=== PATIENT | female | born 1990 | race Caucasian/White ===

== ENCOUNTER → 2021-01-16 11:33 | Outpatient (CLI) | payer OTHER, MEDICAID, SELFPAY ==
[2021-01-16 13:09] LABS: Appearance Urine UA Clear; Bilirubin Urine UA Negative (NEGATIVE); Color Urine UA Yellow; Glucose Urine UA NEGATIVE (Negative); Ketones Urine UA TRACE (NEGATIVE); Nitrite Urine UA NEGATIVE (Negative); Occult Blood Urine UA Negative (Negative); Protein Urine UA Negative (Negative); Urobilinogen Urine UA Normal E.U./dL (0.2); pH Urine UA 5.5 (4.5-8.0)
[2021-01-16 13:10] LABS: Leukocyte Esterase Urine UA NEGATIVE (NEGATIVE)
== END ==
PROVIDERS: Family Provider Family Medicine; PCP Family Medicine; Visit Provider Obstetrics & Gynecology
DX: Z34.81 Encounter for supervision of other normal pregnancy, first trimester (principal)
CPT/HCPCS: 81003; 87086

== ENCOUNTER 2021-04-09 15:58 | Outpatient (CLI) | payer OTHER, MEDICAID, SELFPAY ==
[2021-04-09 17:07] LABS: Appearance Urine UA CLEAR; Bilirubin Urine UA NEGATIVE (NEGATIVE); Color Urine UA YELLOW; Glucose Urine UA NEGATIVE (Negative); Ketones Urine UA 1+ (NEGATIVE); Leukocyte Esterase Urine UA NEGATIVE (NEGATIVE); Nitrite Urine UA NEGATIVE (Negative); Occult Blood Urine UA NEGATIVE (Negative); Protein Urine UA NEGATIVE (Negative); Urobilinogen Urine UA 0.2 E.U./dL (0.2)
--- NOTE | 2021-04-09 17:13 | DI.US.S_ITS ---
PROCEDURE: US OB LIMITED INDICATIONS: ABD PAIN OUTSIDE/PRIOR DATING DATA: Last menstrual period (LMP): October 13, 2020 . LMP-based estimated date of delivery (CANDI): July 20, 2021 . TECHNIQUE: Real-time scanning was performed of the fetus, with image documentation. Endovaginal scanning: Endovaginal scanning performed to assess cervical length. COMPARISON: None. FINDINGS: A single living intrauterine gestation is present. Presentation: Vertex. Placenta: Placental position is fundal , without previa. No evidence for placental abruption. Amniotic fluid index: 15.7 cm, normal range is 5-24 cm. Largest vertical pocket measured 5.1 cm heart rate: 143 beats per minute. Maternal cervical canal: 4.1 cm long. Normal lower limit is 2.5 cm. Anatomy not assessed. IMPRESSION: Single living intrauterine gestation. Normal maternal cervical length of 4.1 cm. No evidence for placenta previa or abruption. Recommend continued clinical surveillance. Dictated by: Salomon Linder M.D. on 04/09/2021 at 18:19 Approved by: Salomon Linder M.D. on 04/09/2021 at 18:21
[2021-04-09 17:15] LABS: Bacteria Urine Occasional (0-1); Culture Indicated Urine Cult Not Indicated; RBC Urine 0-1/HPF (0-5/HPF); Squamous Epithelial Cell Urine 1-5 /HPF (0-5/HPF); Transitional Epi Cells Urine 1-5/HPF (0-5/HPF); WBC Urine 0-1/HPF (0-5/HPF)
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
[2021-04-09] MEDS: NIFEdipine 10 MG CAPSULE PO ×4 (19:27→20:34)
[2021-04-09] MEDS: NIFEdipine 30 MG TAB ER PO (21:04)
== END 2021-04-09 21:05 | disposition home or self-care (01) ==
LOC: LABOR 16:02 → OB 04-15 07:14
PROVIDERS: Family Provider Family Medicine; PCP Family Medicine; Referring Provider Obstetrics & Gynecology; Visit Provider Obstetrics & Gynecology
DX: Z03.71 Encounter for suspected problem with amniotic cavity and membrane ruled out (principal); O47.02 False labor before 37 completed weeks of gestation, second trimester; O26.22 Pregnancy care for patient with recurrent pregnancy loss, second trimester; Z3A.25 25 weeks gestation of pregnancy
CPT/HCPCS: 59025; 76815; 76817; 81001; 84112; 96360; G0378; G0379

== ENCOUNTER → 2021-04-15 08:53 | Outpatient (CLI) | payer OTHER, MEDICAID, SELFPAY ==
[2021-04-15 11:34] LABS: Hematocrit 35.4 % (36-46); Hemoglobin 11.8 g/dL (12.0-16.0)
[2021-04-15 11:46] LABS: GTT (PREG) 1 Hour PP 50gm Dose 119 mg/dL (76-139)
== END ==
PROVIDERS: Family Provider Family Medicine; PCP Family Medicine; Referring Provider Obstetrics & Gynecology; Visit Provider Obstetrics & Gynecology
DX: Z34.82 Encounter for supervision of other normal pregnancy, second trimester (principal); Z3A.25 25 weeks gestation of pregnancy
CPT/HCPCS: 36415; 82950; 85014; 85018

== ENCOUNTER → 2021-05-19 15:47 | Outpatient (CLI) | payer OTHER, MEDICAID, SELFPAY ==
--- NOTE | 2021-05-19 15:48 | DI.US.S_ITS ---
PROCEDURE: US OB LIMITED INDICATIONS: PREMATURE CONTRACTIONS. OUTSIDE/PRIOR DATING DATA: Last menstrual period (LMP): 10/13/20 . LMP-based estimated date of delivery (CANDI): 07/20/21 . First dating scan (date and location): 12/26/20 Estimated date of delivery (CANDI) from first dating scan: 07/21/21 Below measurements were made using the clinically derived due date of 07/20/21. . TECHNIQUE: Real-time scanning was performed of the fetus, with image documentation and biometric measurements. Endovaginal scanning: For improved cervical detail COMPARISON: [facility], OB LIMITED, 04/09/2021, 17:40. FINDINGS: General: A single living intrauterine gestation is present. Presentation: Cephalic. Placenta: Not evaluated Amniotic fluid index: 9.3 cm, normal range is 5-24 cm. Largest pocket is 3.7 cm heart rate: 149 beats per minute. Maternal cervical canal: Closed and 3.3 cm long. Normal lower limit is 2.5 cm. biometrics: Biparietal diameter: 7.7 cm, 31 weeks, 0 days Head circumference: 27.2 cm, 29 weeks, five days Abdominal circumference: 25.4 cm, 29 weeks, four days Femur length: 6.0 cm, 31 weeks, 0 days Estimated gestational age from initial scan: 31 weeks, one day Composite gestational age from present scan: 30 weeks, two days Estimated weight and percentile: 1520 g, 13th percentile Measurement variability for biometric dating: +/- 7 days from 14 weeks to 15 weeks 6 days gestation, +/- 10 days from 16 weeks to 21 weeks 6 days gestation, +/- 2 weeks from 22 weeks to 27 weeks 6 days gestation, +/- 3 weeks for 28 weeks gestation or later. weight reference: 4500 g or EFW >90/95% is considered macrosomia or large for gestational age. EFW <10% is small for gestational age. EFW 5% or less is considered intra-uterine growth restriction. IMPRESSION: 1. Single live intrauterine with appropriate growth since the prior study. 2. Estimated weight at the 13th percentile. 3. Closed cervix, 3.3 cm in length. Dictated by: Melania Ruiz M.D. on 05/20/2021 at 14:09 Approved by: Melania Ruiz M.D. on 05/20/2021 at 14:16
== END ==
PROVIDERS: Family Provider Family Medicine; PCP Family Medicine; Referring Provider Obstetrics & Gynecology; Visit Provider Obstetrics & Gynecology
DX: O47.03 False labor before 37 completed weeks of gestation, third trimester (principal); Z3A.30 30 weeks gestation of pregnancy
CPT/HCPCS: 76815; 76817

== ENCOUNTER → 2021-06-23 11:03 | Outpatient (CLI) | payer OTHER, MEDICAID, SELFPAY ==
[2021-06-24 07:48] LABS: Strep Grp B PCR POS for Grp B Strep
== END ==
PROVIDERS: Family Provider Family Medicine; PCP Family Medicine; Visit Provider Obstetrics & Gynecology
DX: Z34.83 Encounter for supervision of other normal pregnancy, third trimester (principal); Z3A.36 36 weeks gestation of pregnancy
CPT/HCPCS: 87653

== ENCOUNTER → 2021-07-03 12:44 | Outpatient (CLI) | payer OTHER, MEDICAID, SELFPAY ==
--- NOTE | 2021-07-03 12:45 | DI.US.S_ITS ---
PROCEDURE: US OB FOLLOW UP INDICATIONS: Assess growth; Size>Dates OUTSIDE/PRIOR DATING DATA: Last menstrual period (LMP): 10/13/2020. LMP-based estimated date of delivery (CANDI): 07/20/2021. First dating scan (date and location): 05/19/2021. Estimated date of delivery (CANDI) from first dating scan: 07/26/2021. The calculations are made using the ultrasound CANDI of 07/26/2021. TECHNIQUE: Real-time scanning was performed of the fetus, with image documentation and biometric measurements. Endovaginal scanning: Not performed COMPARISON: [facility], US, US OB BIOPHYSICAL + UMBILICAL DOPPLER, 05/26/2021, 22:01. FINDINGS: General: A single living intrauterine gestation is present. Presentation: Cephalic. Placenta: Placental position is fundal, without previa. Amniotic fluid index: 5.6 cm, normal range is 5-24 cm. Single deepest vertical pocket is 2.4 cm. heart rate: 152 beats per minute. Maternal cervical canal: Not visualized. biometrics: Biparietal diameter: 9.1 cm, 37 weeks 0 days Head circumference: 32.8 cm, 37 weeks 2 days Abdominal circumference: 33.1 cm, 37 weeks 0 days Femur length: 7 cm, 35 weeks 6 days Clinically estimated gestational age: 36 weeks 5 days Composite gestational age from present scan: 36 weeks 6 days Estimated weight and percentile: 3020 g, 56 percentile Other: Right renal pelvis measures 0.2 cm. Left renal pelvis measures 0.4 cm. IMPRESSION: 1. [place] living intrauterine at 36 weeks 6 days based on today's ultrasound. Cephalic position. Estimated weight is at the 56 percentile. 2. Normal placenta. VALENTINO 5.6. Within normal limits. We strive to produce accurate, complete, and clear reports of imaging services. To assist us in improving patient care, this report was composed using standard report templates and voice recognition software. Therefore, it may contain abnormal punctuation, insertions and/or omissions. Occasional wrong-word or sound-alike substitutions may occur. Though we review the report and make efforts to correct it, we do recommend that the report be read carefully in proper context to recognize any text inaccuracies. Dictated by: Kimo Becerra M.D. on 07/03/2021 at 14:58 Approved by: Kimo Becerra M.D. on 07/03/2021 at 15:02
== END ==
PROVIDERS: Family Provider Family Medicine; PCP Family Medicine; Referring Provider Obstetrics & Gynecology; Visit Provider Obstetrics & Gynecology
DX: O26.843 Uterine size-date discrepancy, third trimester (principal); Z3A.36 36 weeks gestation of pregnancy
CPT/HCPCS: 76816

== ENCOUNTER 2021-07-21 09:30 | Outpatient (CLI) | payer OTHER, MEDICAID, SELFPAY | END 2021-07-21 11:02 | disposition home or self-care (01) | LOC: LABOR 10:26 → OB 07-23 11:08 | PROVIDERS: Family Provider Family Medicine; PCP Family Medicine; Referring Provider Obstetrics & Gynecology; Visit Provider Obstetrics & Gynecology | DX: O48.0 Post-term pregnancy (principal); Z3A.40 40 weeks gestation of pregnancy | CPT/HCPCS: 59025; G0378; G0379 ==

== ENCOUNTER 2021-07-24 12:45 | Outpatient (CLI) | payer OTHER, MEDICAID, SELFPAY | END 2021-07-24 13:53 | disposition home or self-care (01) | LOC: OB 07-28 07:29 | PROVIDERS: Family Provider Family Medicine; PCP Family Medicine; Referring Provider Obstetrics & Gynecology; Visit Provider Obstetrics & Gynecology | DX: O48.0 Post-term pregnancy (principal); Z3A.40 40 weeks gestation of pregnancy | CPT/HCPCS: 59025; G0378; G0379 ==

== ENCOUNTER 2021-07-27 17:32 | Outpatient (CLI) | payer OTHER, MEDICAID, SELFPAY | END 2021-07-27 18:46 | disposition home or self-care (01) | LOC: OB 07-28 07:32 | PROVIDERS: Family Provider Family Medicine; PCP Family Medicine; Referring Provider Obstetrics & Gynecology; Visit Provider Obstetrics & Gynecology | DX: O48.0 Post-term pregnancy (principal); Z3A.40 40 weeks gestation of pregnancy | CPT/HCPCS: 59025; G0378; G0379 ==

== ENCOUNTER 2021-07-28 07:08 | Inpatient (IN) | payer OTHER, MEDICAID, SELFPAY ==
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
[2021-07-28 08:13] LABS: Add Manual Diff / Slide Review NO; Basophils Absolute Auto 0 /uL (0-100); Basophils Percent Auto 0.2 % (0-2); Eosinophils Absolute Auto 100 /uL (0-450); Eosinophils Percent Auto 1.2 % (2-4); Hematocrit 34.5 % (36-46); Lymphocytes Absolute Auto 1800 /uL (1100-4500); Lymphocytes Percent Auto 16.9 % (25-40); Mean Corpuscular HGB Conc 34.8 % (30-36); Mean Corpuscular Hemoglobin 30.3 PG (26-34); Mean Corpuscular Volume 87.3 fL (80-100); Monocytes Absolute Auto 700 /uL (0-900); Monocytes Percent Auto 6.5 % (3-14); Neutrophils Absolute Auto 7900 /uL (1500-7000); Neutrophils Percent Auto 75.2 % (50-75); Platelet Count 300 X10^3/uL (150-400); Red Blood Cell Count 3.95 X10^6/uL (4.0-5.2); Red Cell Distribution Width 14.5 % (11.6-14.8); White Blood Cell Count 10.4 X10^3/uL (4.5-11.0)
[2021-07-28 08:31] LABS: COVID19 -Nasal RAPID Negative (Negative)
[2021-07-28] MEDS: PENICILLIN G POTASSIUM 5,000,000 UNIT in DEXTROSE 5% IN WATER 250 ML IV (08:43)
[2021-07-28] MEDS: LACTATED RINGERS 1,000 ML 100 ML IV ×2 (08:43→18:51)
[2021-07-28] MEDS: OXYTOCIN PREMIX 30 UNIT/500 ML PLAST..BAG IV (09:01)
[2021-07-28 11:34] VITALS: BP 126/63
[2021-07-28] MEDS: PENICILLIN G POTASSIUM 3,000,000 UNIT/50 ML FROZ.PIGGY 100 UNIT IV ×2 (12:15→16:10)
--- NOTE | 2021-07-28 15:07 | PM.OBPNLAB ---
Date/Time Date Patient Seen: 07/28/21 Time Patient Seen: 12:30 Pain Control Pain control: tolerating well Pelvic Exam Dilation (cm): 3 Effacement (%): 90 station: -1 Amniotic membrane status: Intact Contractions Contractions on admission: regular Monitor mode: External Contraction frequency (min): 3 Contraction duration (min): 1 Contraction pattern: Regular Contraction phase: Resting Contraction intensity: Moderate Status status: Category l Heart Rate Baseline: 135 Monitor Accelerations: Present Monitor Decelerations: Absent Monitor Variability: Moderate Assessment and Plan Assessment: induction ongoing Plan: continuous present management Comments: Unable to AROM due to posterior position of cervix
[2021-07-29] MEDS: miSOPROStoL 25 MCG TABLET 50 MCG PO (02:32)
--- NOTE | 2021-07-29 07:06 | PM.OBPNLAB ---
Date/Time Date Patient Seen: 07/28/21 Time Patient Seen: 19:20 Pain Control Pain control: tolerating well Pelvic Exam Effacement (%): 75 station: -1 Amniotic membrane status: Intact Contractions Monitor mode: External Pitocin rate (mU/min): 20 Contraction frequency (min): 3 Contraction duration (min): 1 Contraction pattern: Regular Contraction phase: Resting Contraction intensity: Moderate Status status: Category l Heart Rate Baseline: 145 Monitor Accelerations: Present Monitor Decelerations: Absent Monitor Variability: Moderate Comments: Category 1 tracing Assessment and Plan Assessment: induction ongoing Plan: other (Pitocin augmentation paused due to staffing limitations; will resume as soon as staffing permits. Patient aware.)
--- NOTE | 2021-07-29 07:34 | P.PNOB_ITS ---
Date/Time Date Patient Seen: 07/29/21 Time Patient Seen: 07:20 Pain Control Comments: No pain at present, sleeping soundly Pelvic Exam Amniotic membrane status: Intact Contractions Contraction pattern: Regular Contraction phase: Resting Contraction intensity: Moderate Assessment and Plan Assessment: other (Induction placed on hold due to staffing shortages) Plan: other Comments: Have received notification that stain generating capability in the [facility] OR is down with only 2 available packs currently sterilized and therefore induction at this point cannot be continued due to safety reasons. Options being evaluated at present by leadership and once decisions are made at that level, will discuss options with the patient and move forward with whatever plan is deemed safest and most appropriate for the patient.
--- NOTE | 2021-07-29 08:38 | PM.OBPNLAB ---
Date/Time Date Patient Seen: 07/29/21 Time Patient Seen: 08:25 Pelvic Exam Dilation (cm): 3 Effacement (%): 90 station: -1 Amniotic membrane status: Intact Comments: AROM performed but little or no fluid noted Contractions Monitor mode: External Contraction pattern: Regular Contraction phase: Resting Contraction intensity: Moderate Status status: Category l Heart Rate Baseline: 135 Monitor Accelerations: Present Monitor Decelerations: Absent Monitor Variability: Moderate Assessment and Plan Assessment: other Plan: begin patient augmentation Comments: Issues preventing re-initiation of induction have been resolved and will therefore restart Pitocin at 3 units and increase to affect adequate labor.
[2021-07-29] MEDS: OXYTOCIN PREMIX 30 UNIT/500 ML PLAST..BAG IV (08:49)
[2021-07-29] MEDS: PENICILLIN G POTASSIUM 3,000,000 UNIT/50 ML FROZ.PIGGY 100 UNIT IV ×2 (08:49→12:42)
[2021-07-29] MEDS: LACTATED RINGERS 1,000 ML 100 ML IV ×2 (08:53→17:28)
--- NOTE | 2021-07-29 11:13 | PM.AN.REGBLK ---
Regional Block Pre-procedure Procedure: Continuous Lumbar Epidural for L&D Attending OB provider: Lalit Emanuel PMH/ROS narrative: No previous epidurals. Patient denies problems with or contributory past medical history. Hx: No personal or family history of anesthesia problems. Exam narrative: MP2, RRR, CTAB ASA Class: III Labs: Hct 34.5 % (36-46) L 07/28/21 08:00 Plt Count 300 X10^3/uL (150-400) 07/28/21 08:00 Medications: Current Medications Generic Name Dose Route Start Last Admin Trade Name Freq PRN Reason Stop Dose Admin Carboprost Tromethamine 250 mcg 07/28/21 07:34 Carboprost 250 Mcg/Ml Ampul IM Q90M PRN Bleeding Fentanyl 50 mcg 07/28/21 07:36 Fentanyl 100 Mcg/2 Ml Inj IV Q1H PRN Pain, Moderate (4-6) Lactated Ringer's 1,000 mls @ 100 mls/hr 07/28/21 07:45 07/29/21 08:53 Lactated Ringers IV 100 mls/hr CONT MAHIN Administration Oxytocin/Lactated Ringer's 30 unit in 500 mls @ 200 mls/hr 07/28/21 07:34 Oxytocin Premix IV CONT PRN Bleeding Protocol Tranexamic Acid 1,000 mg/ 100 mls @ 200 mls/hr 07/28/21 07:34 Sodium Chloride IV NOW PRN Bleeding Oxytocin/Lactated Ringer's 30 unit in 500 mls @ 3 mls/hr 07/28/21 08:00 07/29/21 08:49 Oxytocin Premix IV 3 milliunit/min TITRATE MAHIN 3 mls/hr Administration Protocol 3 MILLIUNIT/MIN Penicillin G Potassium 3,000,000 unit in 50 mls @ 100 mls/hr 07/28/21 12:00 07/29/21 08:49 Penicillin G Potassium IV 100 mls/hr Q4H MAHIN Administration Lactated Ringer's 1,000 mls @ 100 mls/hr 07/29/21 11:15 Lactated Ringers IV CONT MAHIN FENT 2MCG/ML BUPIV 0.125% EPI 200 mcg in 100 mls @ 12 mls/hr 07/29/21 11:15 Fentanyl/Bupiv/Ns 2mcg/Ml - 0.125% EPIDURAL CONT MAHIN Methylergonovine Maleate 0.2 mg 07/28/21 07:34 Methylergonovine 0.2 Mg Tablet PO Q6HR PRN Heavy Bleeding Methylergonovine Maleate 0.2 mg 07/28/21 07:34 Methylergonovine 0.2 Mg/Ml Vial IM NOW PRN Bleeding Misoprostol 800 mcg 07/28/21 07:34 Misoprostol 200 Mcg Tablet ID NOW PRN Bleeding Misoprostol 1,000 mcg 07/28/21 07:34 Misoprostol 200 Mcg Tablet ID NOW PRN Bleeding Misoprostol 400 mcg 07/28/21 07:34 Misoprostol 200 Mcg Tablet SL NOW PRN Bleeding Naloxone HCl 0.2 mg 07/28/21 07:36 Naloxone 0.4 Mg/Ml Vial IV Q2MIN PRN Opiate Reversal Ondansetron HCl 4 mg 07/28/21 07:36 Ondansetron 4 Mg/2 Ml Inj IV Q4HR PRN Nausea And Vomiting Oxytocin 10 unit 07/28/21 07:34 Oxytocin 10 Unit/Ml Vial IM NOW PRN Bleeding Zolpidem Tartrate 5 mg 07/28/21 22:45 Zolpidem 5 Mg Tablet PO BEDTIME PRN Sleep Allergies: Allergies Allergy/AdvReac Type Severity Reaction Status Date / Time peanut [PEANUT] Allergy Intermediate Rash, GI Verified 03/13/21 15:55 intolerance nickel Allergy Rash Verified 03/13/21 15:55 ciprofloxacin AdvReac Intermediate GI Verified 03/13/21 15:55 intolerance pramipexole [PRAMIPEXOLE] AdvReac Intermediate GI Verified 04/09/21 20:16 intolerance topiramate AdvReac Intermediate GI Verified 04/09/21 20:16 intolerance ibuprofen AdvReac GI Verified 03/13/21 15:55 intolerance Procedure Insertion date: 07/29/21 Insertion time: 10:55 Prep/Local: betadine x3 (chloroprep) and 1% lidocaine Interspace: L3-4 Patient position: sitting Needle: 18 gauge Chadd (with 27G pencil point needle-through needle for IT dose) Loss of resistance with: saline (with air bubble) RHONDA at (cm): 7 Catheter placed at SKIN (cm): 12 Catheter in SPACE (cm): 5 Insertion: Yes CSF, No Blood, No Paresthesia with insertion, No Paresthesia with injection and No Test dose reaction Initial Medications TEST DOSE time: 10:55 TEST DOSE: 1.5% lidocaine with epinephrine 1:200k (mL): 5 (3mL initial test dose, 2mL as part of first bolus) BOLUS DOSE time: 10:56 BOLUS DOSE (mL): 2 BOLUS DOSE med: other (10mcg fentanyl intrathecally, 90mcg fentanyl via epidural catheter) Infusion INFUSION: 0.0625% bupivacaine and with fentanyl 2 mcg/mL Initial rate (mL/hr): 12 (with bolus of 5mL Q15min lockout) Post-procedure Anesthesia time START: 10:40 Anesthesia time END: 16:45 Post-procedure Anesthesia Assessment: No Anesthesia complications (failure to progress --> using epidural.)
--- NOTE | 2021-07-29 13:20 | PM.OBPNLAB ---
Date/Time Date Patient Seen: 07/29/21 Time Patient Seen: 13:20 Pain Control Pain control: epidural Comments: Excellent pain relief with her SHERIE Pelvic Exam Dilation (cm): 5 Effacement (%): 90 station: -1 Amniotic membrane status: Ruptured Contractions Monitor mode: Internal Contraction frequency (min): 3 Contraction duration (min): 1 Contraction pattern: Regular Contraction phase: Resting Contraction intensity: Moderate Status status: Category l Heart Rate Baseline: 120 Monitor Accelerations: Present Monitor Decelerations: Absent Monitor Variability: Moderate Assessment and Plan Assessment: induction ongoing Comments: IUPC and FSE placed. She's had no progress in dilation or advancement of the station over the last 2.5 hours. Infant is NANCY and not asynclitic. Slight caput formation. Will assess uterine activity and closely observe progress.
--- NOTE | 2021-07-29 16:16 | PM.OBPNLAB ---
Date/Time Date Patient Seen: 07/29/21 Time Patient Seen: 16:06 Pain Control Pain control: tolerating well Pelvic Exam Dilation (cm): 5 Effacement (%): 90 station: -1 Amniotic membrane status: Ruptured Comments: No change since 1030. Vertex is NANCY, non asynclitic, and the bony vertex is impacted against the bony pelvis cephalad to the ischial spines. Early caput formation is noted as well. Contractions Contractions on admission: none Monitor mode: Internal Pitocin rate (mU/min): 8 Contraction frequency (min): 3 Contraction duration (min): 1 Contraction pattern: Regular Contraction phase: Resting Contraction intensity: Moderate Status status: Category l Heart Rate Baseline: 115 Monitor Accelerations: Present Monitor Decelerations: Absent Monitor Variability: Moderate Assessment and Plan Assessment: induction ongoing Plan: Comments: Patient's dilation has not changed in over 5-1/2 hours and her station has not changed in over 24 hours despite adequate contractions as documented by IUPC. Options discussed included continued expectant management with close observation for descent and dilatation or to proceed with primary section for cephalopelvic disproportion. After consideration of all options, patient agrees to proceed with primary section by low transverse cervical incision. Patient counseled regarding alternatives, risks, benefits, and potential complications associated with primary section. A written consent was executed, signed, and witnessed this date.
--- NOTE | 2021-07-29 17:00 | PM.PREOP ---
Pre-operative Note COVID-19 COVID-19 status: Negative Result date/Date tested (Pos, Neg/Pending): 07/28/21 Interval Note History & Physical reviewed/Exam performed by Physician: Yes Changes to H&P: No
[2021-07-29] MEDS: CEFAZOLIN 2 GM/20 ML SYRINGE IV (17:08)
--- NOTE | 2021-07-29 17:22 | SUR.OPER ---
Addendum entered by Sarita King R.N. 07/29/21 17:55: Patient left her glasses on, nose ring in place and silicone white band on left hand. Original Note: Supine on Padded OR bed, head on pillow, safety belt at thigh, arms secured on padded arm boards at <90 degrees abduction. Bump under right buttock. Legs uncrossed with pillow under knees, gel pad to heels, tape over blanket to lower legs. Gel pad placed between patients posterior right thigh and catheter tubing.
--- NOTE | 2021-07-29 17:40 | SUR.OPER ---
Viable baby boy delivered at 1734. Placenta delivered. Cord blood tubes X2 and placenta given to L&D RN.
[2021-07-29 18:20] VITALS: BP 112/48; PULSE 78; RESP 10; TEMP 36.6; O2SAT 100
[2021-07-29 18:25] VITALS: BP 100/63; PULSE 85; RESP 10; O2SAT 100
[2021-07-29] MEDS: OXYCODONE IR 5 MG TABLET PO (18:25)
[2021-07-29 18:30] VITALS: BP 108/71; PULSE 84; RESP 12; O2SAT 100
--- NOTE | 2021-07-29 18:33 | PM.OBCS.1 ---
Operative Date/Time/Diagnoses Date of procedure: 07/29/21 Time of procedure: 17:00 Pre-op diagnosis: Intrauterine gestation, 40 1+1 weeks gestational age Secondary arrest of descent and dilatation due to cephalopelvic disproportion Post-op diagnosis: same Procedure & Clinicians Procedure: Primary section (low transverse cervical) Same procedure as scheduled: Yes Indications: Melissa is a 31-year-old 7 para 0 at 41+ 1 weeks gestational age who is experienced secondary arrest of descent and dilatation during induction for postdates. Her cervical dilation did not advance beyond 5 cm and the vertex did not descend below-1 station for over 6 hours prior to decision for operative delivery. Surgeon: Lalit Emanuel Hvac Field Service Technician: Lata Cisse Reason for Hvac Field Service Technician: Required for retraction and the safe, timely, and effective performance of delivery. Anesthesia Type: Epidural Operative Notes Findings: Normal gravid anatomy. Viable male Apgars of 9/9 with weight of 3454 gms (7# 9.8 oz.) delivered from the vertex presentation. Closure Type: primary Specimen(s): cord blood Intraoperative meds administered: Pitocin Applied: Catheter Estimated Blood Loss (mL): 600 Blood products transfused: none Procedure in detail: With the patient under satisfactory continuous lumbar epidural anesthesia in the dorsal supine position, the abdomen was prepped and draped for delivery. A pre-surgical safety time-out was then taken in accordance with [facility] Main OR protocols. A 15 cm transverse Pfannenstiel incision was made in the skin and the incision was carried down to the deep fascia. The deep fascia was incised transversely, the rectus abdominal my bluntly, and the peritoneum was entered sharply without difficulty. A bladder blade was placed and bladder flap created with a transverse incision of the peritoneum at the vesicouterine reflection. The bladder is advanced and hysterotomy performed sharply with production of clear fluid. The was easily delivered from the vertex presentation and after delayed cord clamping of greater than 60 seconds, was passed to the staff in attendance for delivery. The uterus was massaged and the placenta easily delivered with gentle traction and massage of the fundus. No residual membranes were noted and the uterus was exteriorized. Ring forceps were placed at the angles and on the lower aspect of the hysterotomy. Primary closure of the hysterotomy was performed with #1 Chromic with a running interlocking stitch followed by a 2nd layer of #1 Chromic in running imbricating stitch. Hemostasis was excellent and the pelvis was irrigated. The uterus was then replaced into the abdominal cavity and inspected for bleeding. There was no bleeding and the hysterotomy line was completely hemostatic. The bladder flap was not closed but the anterior peritoneum was closed with 2 O Vicryl in a running stitch. The fascia was then closed with 1. Vicryl in a running stitch initiated each angle and tying separately near the midline. The subcutaneous tissues were then closed with 2-0 Vicryl in a running stitch and the skin edges brought together with 4-0 Monocryl using a running subcuticular closure. Mastisol and Steri-Strips are applied followed by dressing with an Aquacel dressing. The patient was then transferred to the PACU for a period of recovery after having tolerated procedure well. Estimated blood loss 600 cc. Complications experienced, none. Complications: none [place] Baby 1: Infant Gender: Male Presentation: vertex Position: Left Occiput Anterior Placental Delivery Description: Manual Removal Cord Vessel Description: 3 Vessels score (1 min): 9 score (5 min): 9 weight: 7 lb 9.836 oz
[2021-07-29 18:35] VITALS: BP 112/57; PULSE 77; RESP 13; O2SAT 100
--- NOTE | 2021-07-29 19:09 | SUR.PHASEI ---
Report to [facility] in labor and delivery. Pt transported via bed and self and Shannon CARRERA escorting.
[2021-07-29] MEDS: OXYCODONE/ACETAMINOPHEN 5/325 TABLET 1 TAB PO (21:42)
[2021-07-29] MEDS: MORPHINE 4 MG/ML INJ IV (22:52)
[2021-07-30] MEDS: hydrOXYzine pamoate 25 MG CAPSULE PO ×2 (00:03→22:01)
[2021-07-30] MEDS: KETOROLAC 30 MG/ML VIAL IV ×4 (00:03→18:39)
[2021-07-30] MEDS: OXYCODONE/ACETAMINOPHEN 5/325 TABLET 2 TAB PO ×4 (02:25→18:39)
[2021-07-30 07:42] LABS: Hematocrit 33.6 % (36-46); Hemoglobin 11.2 g/dL (12.0-16.0)
[2021-07-30] MEDS: DOCUSATE 100 MG CAPSULE 200 MG PO (08:49)
--- NOTE | 2021-07-30 12:33 | PM.OBPN.1 ---
Subjective - OB Subjective Patient comments: pain well controlled and incisional pain [place] baby status: doing well feeding status: breast and bottle feeding Date Patient Seen: 07/30/21 Time Patient Seen: 12:20 Exam Vital Signs (past 8 hours): Oxygen Delivery Method Room Air Const General: cooperative and comfortable Orientation: alert and oriented x3 HENMT Head: normal to inspection Ears: hearing grossly normal bilaterally Nose: external nose normal Face and sinus: face symmetric Eyes General: appearance normal, both eyes and all related structures Neck Neck: normal visual inspection Resp Effort & Inspection: normal respiratory effort and able to speak in complete sentences Auscultation: clear to auscultation bilaterally Cardio Rate: regular rate Rhythm: regular rhythm Heart Sounds: S1 normal, S2 normal and no murmurs GI Inspection: normal to inspection and incision (Dressing clean and dry) Palpation: soft, no hepatosplenomegaly and mass (Fundus firm, mildly tender, U -2) General: other (Deferred) Extrem General: no calf tenderness Psych Appearance: grossly normal Mental Status: mental status grossly normal Speech and Movement: speech and movement normal Mood: congruent mood Affect: normal affect Attitude: cooperative Thought Process: normal Thought Content: normal Judgment: judgment good Objective Labs Result Diagrams: 07/30/21 06:45 Labs: Laboratory Results - last 24 hr 07/30/21 06:45 Hgb 11.2 L Hct 33.6 L Assessment & Plan Plan day: 1 plan OB: routine postop care Comments: Anticipate discharge 07/31/2021. Time Spent With Patient Time: Total time spent is greater than 50% in coordination of care (as documented) at patient's floor/unit and/or counseling patient: Time with patient: less than 15 minutes
[2021-07-30] MEDS: ACETAMINOPHEN 325 MG TABLET 650 MG PO (22:00)
[2021-07-30] MEDS: ONDANSETRON 8 MG TABLET PO (23:00)
[2021-07-31] MEDS: ONDANSETRON 4 MG ODT 8 MG PO (00:55)
[2021-07-31] MEDS: OXYCODONE IR 5 MG TABLET 10 MG PO (02:07)
[2021-07-31] MEDS: OXYCODONE/ACETAMINOPHEN 5/325 TABLET 1 TAB PO (06:08)
--- NOTE | 2021-07-31 08:05 | PM.OBDS.1 ---
Discharge Providers Provider Date of admission: 07/28/21 07:08 Discharge Date: 07/31/21 Primary care physician: Lorenzo Mota MD Consults: 07/28/21 07:37 Consult to Anesthesiology Urgent Comment: Consulting Provider: Lalit Emanuel Reason for consultation: Placement of SHERIE in labor Has provider been notified: No 07/29/21 18:41 Consult to Recoating Machine Operator Routine Comment: Discharge provider: Lalit Emanuel MD Summary Hospital Course Date Patient Seen: 07/31/21 Time Patient Seen: 10:30 Diagnoses: Intrauterine gestation, 40 1+1 weeks, delivered Secondary arrest of descent and dilatation due to cephalopelvic disproportion Status post primary section (low transverse cervical) Hospital Course: On the afternoon of 07/29/2021, the patient underwent a primary section for secondary arrest of descent and dilatation after failing to advance beyond 5-6 cm for greater than 6 hours with the vertex never descending below -1 station. Infant was a viable male infant Apgars of 9/9 with a weight of 3454 g (7 lb 9.8 oz). Following surgery the patient has done extremely well with prompt return of bowel and bladder function, she is ambulating independently, tolerating regular diet, and her pain is reasonably well controlled with oral medications. She will be discharged at this time to home in afebrile normotensive condition with medications to include Percocet for 3-5 days and will transition to Tylenol/ibuprofen. Prior to discharge she was counseled regarding precautionary symptoms, limitations activity, medications, and plans for follow-up which will be in 1 week for dressing change. Peripartum Data Infant Delivery Method: Section Laceration Description: None Episiotomy description: None Procedures: Continuous lumbar epidural placement IUPC and FSE placement Primary section complications: none 1: Gender: Male Disposition of : home Status at Discharge Cognitive/behavioral status at discharge: oriented Functional status at discharge: independent ambulation Overall status at discharge: patient is progressing back to baseline Time Spent with Patient Time attestation: Total time spent providing and/or coordinating discharge services: Objective Labs Result Diagrams: 07/30/21 06:45 Exam Vital Signs (past 8 hours): Oxygen Delivery Method Room Air Const General: cooperative, comfortable and well developed Nutritional Appearance: average body habitus Orientation: alert and oriented x3 HENMT Head: normal to inspection Eyes General: appearance normal, both eyes and all related structures Neck Neck: normal visual inspection Resp Effort & Inspection: normal respiratory effort and able to speak in complete sentences Auscultation: clear to auscultation bilaterally Cardio Rate: regular rate Rhythm: regular rhythm Heart Sounds: S1 normal, S2 normal and no murmurs GI Inspection: normal to inspection and incision (Dressing clean and dry) Palpation: soft, no hepatosplenomegaly and tender (Mild, diffuse postsurgical tenderness) External Female Exam: other (Minimal lochia) Skin General: no rashes or lesions noted Extrem General: no calf tenderness Psych Appearance: grossly normal Mental Status: mental status grossly normal Speech and Movement: speech and movement normal Mood: congruent mood Affect: normal affect Attitude: cooperative Thought Process: normal Thought Content: normal Judgment: judgment good Discharge Plan Discharge Plan Patient Disposition: Home Provider Discharge Comment: Please review the written instructions she received at the time of discharge. Your follow-up appointment will be scheduled for 1 week following year delivery and I look forward to seeing you then. If in the meanwhile however you have any issues, concerns, or problems, please contact me either through the office phone or via the patient portal. Discharge orders & Medications Prescriptions: New oxycodone-acetaminophen 5-325 mg Tablet 1 - 2 tab PO Q4-6H PRN (Reason: Pain, Severe (7-10)) 5 Days Qty: 20 0RF Continued prenat.vits,fabian,[id number] Tablet 1 tab PO DAILY 0RF Discontinued nifedipine 30 mg tablet extended release 30 mg PO DAILY Qty: 30 5RF nifedipine 10 mg capsule 10 mg PO .COMPLEX Qty: 60 3RF Rx Instructions: 10 mg PO every 20 minutes x 4 doses PRN uterine contractions. If contractions don't resolve after 4 doses, contact your physiciaan; aspirin 81 mg tablet,chewable 81 mg PO DAILY 0RF Follow up/Referrals: Lalit Emanuel MD [Physician] - (please follow up w/ Dr. Emanuel on August 05 @ 10:30am for your incision check) Discharge Health Status Multidrug resistant organism: No MDRO Diet/Activity/Treatments Diet: Diet as Tolerated Activity: As tolerated Skin/Wound/Dressing Care Report to your healthcare provider any signs of infection, such as:: chills, fever, increased pain, unusual drainage and unusual redness Dressing: Dressing will be removed at the time of your visit in 1 week. Visit Report/Discharge Packet Instructions: DI for , DI for and Nipple Soreness, DI for Prescription Opioid Use Stand Alone Forms: Discharge: Care Discharge Data Primary Care Provider: Lorenzo Mota
[2021-07-31] MEDS: ACETAMINOPHEN 325 MG TABLET 650 MG PO (08:37)
[2021-07-31] MEDS: DOCUSATE 100 MG CAPSULE 200 MG PO (08:38)
[2021-07-31 08:55] VITALS: BP 112/57; PULSE 77; RESP 13; TEMP 36.6
[2021-07-31] MEDS: OXYCODONE/ACETAMINOPHEN 5/325 TABLET 2 TAB PO (10:06)
== END 2021-07-31 10:56 | disposition home or self-care (01) | DRG 540 ==
PROVIDERS: Admitting Provider Obstetrics & Gynecology; Family Provider Family Medicine; PCP Family Medicine; Referring Provider Obstetrics & Gynecology; Visit Provider Obstetrics & Gynecology
PROC: 10D00Z1 Extraction of Products of Conception, Low, Open Approach (ICD-10-PCS; CPT 59514; principal; 2021-07-29 17:00)
DX: O48.0 Post-term pregnancy (principal); O64.8XX0 Obstructed labor due to other malposition and malpresentation, not applicable or unspecified; O99.824 Streptococcus B carrier state complicating childbirth; Z3A.41 41 weeks gestation of pregnancy; Z37.0 Single live birth; O99.214 Obesity complicating childbirth; E66.01 Morbid (severe) obesity due to excess calories; O99.344 Other mental disorders complicating childbirth; F31.9 Bipolar disorder, unspecified; Z86.16 Personal history of COVID-19; Z20.822 Contact with and (suspected) exposure to COVID-19; Z3A.40 40 weeks gestation of pregnancy
CPT/HCPCS: 01967; 01968; 36415; 59025; 59050; 59514; 85014; 85018; 85025; 86850; 86900; 86901; 87635; C9803; G0379; J0690; J1885; J2270; J2274; J2405; J2540; J2590; J3010; Q0162